=== PATIENT | female | born 1940 | race Caucasian/White ===

== ENCOUNTER 2016-05-23 22:53 | Emergency (ER) | payer MEDICARE, OTHER ==
--- NOTE | 2016-05-29 07:37 | ER ---
ADMIT: 05/23/2016 RM/LOC: ER [facility] MR#: [id number] [address] [id number] CORTNEY TODD [address] [place] [address] Emergency Room Report SEX: F AGE: 75 : 1940 DATE: 05/23/2016 TIME: 3 Please refer to my T-sheet for complete H and P. HISTORY OF PRESENT ILLNESS: Briefly, the patient is a 75-year-old, comes in with runny nose, cough, vomited once. It started last night. PHYSICAL EXAMINATION: VITAL SIGNS: Her blood pressure 103/48, pulse 76, respirations 12, temp 100.1, saturating 93%. GENERAL: No acute distress. HEENT: Mild rhinorrhea. LUNGS: Clear. HEART: Regular. ABDOMEN: Soft, nontender. EMERGENCY DEPARTMENT COURSE: I gave her Zofran 4 mg ODT, 1 g of Tylenol, she is feeling much better. Influenza was negative. I gave her Rocephin 1 g IM, and she is ready for discharge. ASSESSMENT: 1. Bronchitis. 2. Nausea and vomiting. PLAN: Z-Vik, Phenergan, push fluids. Return if worse. Follow up with her primary in the next 2-3 days. Saji Valladares MD/ romanl JOB #: [id number] CC: Saji Valladares MD, Attending Physician Radha Lua MD, Family Physician MD Radha López MD
== END 2016-05-24 00:20 | disposition home or self-care (01) ==
LOC: ER 22:53
DX: J40 Bronchitis, not specified as acute or chronic (principal); I10 Essential (primary) hypertension; E78.5 Hyperlipidemia, unspecified; F41.9 Anxiety disorder, unspecified

== ENCOUNTER → 2016-06-11 | Outpatient (CLI) | payer MEDICARE, OTHER | END | disposition home or self-care (01) | LOC: RAD.S 14:00 | DX: R05 Cough (principal); J43.9 Emphysema, unspecified; Z98.890 Other specified postprocedural states; Z86.79 Personal history of other diseases of the circulatory system ==